=== PATIENT | female | born 1950 | race African-American/Black ===

== ENCOUNTER 2016-11-03 11:17 | Day surgery (SDC) | payer MEDICARE, OTHER ==
[2016-11-03] VITALS (9 sets, daily range): BP systolic 104–166; BP diastolic 64–80; PULSE 49–55; TEMP 97.7
[~2016-11-03] VITALS: Ht 165.2 cm; Wt 102.0 kg
[~2016-11-03 11:17] MED LIST: LISINOPRIL5 MG PO
[2016-11-03] MEDS ORDERED: ASPIRIN E.C. 8181 MG PO (12:18)
[2016-11-03] MEDS ORDERED: HCTZ 25MG TAB25 MG PO (12:18)
[2016-11-03 12:22] LABS: HEMATOCRIT 38.9 % (37.0-47.0); HEMOGLOBIN 12.9 g/dl (12.5-16.0); MEAN CELL VOLUME 91 fl (80.0-100.0); MEAN CORPUSCULAR HEMOGLOBIN 30 pg (27.0-31.0); MEAN CORPUSCULAR HGB CONC 33 g/dl (33.0-37.0); MEAN PLATELET VOLUME 11.6 fl (7.4-10.4); PLATELET COUNT 177 K/mm3 (130-400); RED BLOOD COUNT 4.27 M/mm3 (4.10-5.30); REDCELL DISTRIBUTION WIDTH-CV 14.2 % (11.5-14.5); WHITE BLOOD COUNT 3.8 K/mm3 (4.8-10.8)
[2016-11-03 12:24] LABS: PROTHROMBIN TIME 11.5 SECONDS (9.7-12.8)
[2016-11-03 12:29] LABS: CALCIUM 9.1 mg/dL (8.4-10.2); CREATININE, serum 0.87 mg/dL (0.52-1.25); POTASSIUM 3.3 mmol/L (3.4-5.0)
[2016-11-03] MEDS ORDERED: ALDACTONE 25MG25 M1 (15:48)
== END 2016-11-03 16:35 | disposition home or self-care (01) ==
LOC: COL.CAR 11:17
PROVIDERS: Internal Medicine Cardiovascular Disease
DX: I25.110 Atherosclerotic heart disease of native coronary artery with unstable angina pectoris (principal); I10 Essential (primary) hypertension; G47.30 Sleep apnea, unspecified; R94.39 Abnormal result of other cardiovascular function study
CPT/HCPCS: C1769; J1644; J2250; J3010; Q9967